=== PATIENT | male | born 1960 | race Caucasian/White ===

== ENCOUNTER 2016-12-14 13:26 | Emergency (ER) | payer OTHER ==
[~2016-12-14] VITALS: Ht 180.3 cm; Wt 106.6 kg
[~2016-12-14 13:26] MED LIST: ASPIR 8181 MG PO; FLEXERIL10 MG PO; LANTUS SOLOS100 U/ML SC; METFORMIN HCL500 MG PO; PRINIVIL 5MG5 MG PO; SIMVASTATIN40 MG PO; VICODIN5-300 PO; XARELTO20 MG PO
[2016-12-14 13:32] VITALS: BP 147/83
--- NOTE | 2016-12-14 13:35 | ED MVC/FALL/TRAUMA COMPLAINT ---
History of Present Illness General Chief Complaint: Fall Stated Complaint: BACK PAIN S/P FALL Source: patient, old records Exam Limitations: no limitations Vital Signs & Intake/Output Vital Signs & Intake/Output Vital Signs Date Time Temp Pulse Resp B/P Pulse O2 O2 Flow FiO2 Ox Delivery Rate 12/14 1332 98.6 96 18 147/83 95 Room Air Allergies Coded Allergies: atorvastatin (From Lipitor) (Severe, MUSCLE PAIN 12/14/16) Reconcile Medications Aspirin (Ecotrin) 81 MG TABLET.DR 1 TAB PO DAILY HEART HEALTH (Reported) Cyclobenzaprine HCl 5 MG TABLET 1 TAB PO TIDPRN PRN pain CYCLOBENZAPRINE HCL (Flexeril) 10 MG TABLET 1 TAB PO TID strain Avoid operating motor vehicle or heavy machinery Hydrocodone/Acetaminophen ([place] 5-325 Tablet) 5 MG-325 MG TABLET 1 TAB PO TID PRN PAIN HYDROCODONE/ACETAMINOPHEN (Hydrocodon-Acetaminophen 5-325) 5 MG-325 MG TABLET 1-2 TAB PO Q6P PRN pain Insulin Glargine, Recombinan (Lantus Solostar) 100 U/ML MARITA 53 UNITS SC BID DIABETES (Reported) Lisinopril (Prinivil) 5 MG TABLET 1 TAB PO DAILY LIVER (Reported) Metformin Hydrochloride (Metformin HCl) 500 MG TAB 1 TAB PO BID DIABETES ( Reported) Rivaroxaban (Xarelto) 20 MG TABLET 1 TAB PO DAILY BLOOD CLOT-WAS IN LEFT LEG (Reported) with food Simvastatin 40 MG TABLET 1 TAB PO QPM CHOLESTEROL (Reported) Triage Note: PT SLIPPED ON THE ICE AND FELL ON HIS BACK. C/O LOWER RIGHT SIDE BACK PAIN. Triage Nurses Notes Reviewed? yes Onset: Abrupt Duration: hour(s): (1), constant Timing: single episode today Severity: moderate Severity Numbers: 6 Injuries/Fall Location: back Method of Injury: fall Loss of Consciousness: no loss of consciousness Modifying Factors: Improves With: rest. Worsens With: movement, palpation. Associated Symptoms: denies HPI: 56-year-old male history of diabetes hypertension I cholesterol presents emergency room after he slipped on the ice outside landing on his right lower back one hour prior to arrival. He now presents complaining of moderate aching sharp pain over his right lower back that is nonradiating. It is worse with attempted range of motion change in position and palpation. He denies hitting his head there is no loss of consciousness he denies any neck or upper back pain. No arm or leg pain, there is no numbness or tingling in his legs. No urinary or bowel incontinence no abdominal pain nausea vomiting. The patient has not taken anything for his symptoms there are no other associated symptoms or modifying factors (YOUNG HSIEH) Past History Travel History Traveled to [place] past 21 day No Medical History Any Pertinent Medical History? see below for history Cardiovascular: hypertension, hyperlipidemia Endocrine: diabetes Surgical History Surgical History: shoulder repair Psychosocial History What is your primary language Iraqi Family History Hx Contributory? No (YOUNG HSIEH) Review of Systems Review of Systems Constitutional: Reports: see HPI. All Other Systems: Reviewed and Negative Comments Review of systems: See HPI, All other systems negative. Constitutional, no chills no fever, no malaise HEENT: no sore throat no congestion, no ear pain Cardiovascular: No chest pain , no palpitation Skin, no rashes, no change in skin Respiratory: No dyspnea no cough no sputum GI: No nausea no vomiting, no diarrhea, no bloating/constipation : No dysuria Muscle skeletal: No joint pain, no joint swelling, back pain, no neck pain, Neurologic: No numbness no confusion, no headache Psych: No stress Heme/endocrine: No bruising no bleeding Immunology: No lymphadenopathy (YOUNG HSIEH) Physical Exam Physical Exam General Appearance: well developed/nourished, alert, awake Comments: Well-developed well-nourished person in no acute distress HEENT: Normal EENT exam; PERRL, EOMI, HEAD is atraumatic. moist mucous membranes. Neck: Supple, no midline or paracervical tenderness, normal range of motion without pain or tenderness Back: There is right sided paralumbar muscle tenderness. Patient no ecchymosis or signs of trauma no midline tenderness pain is reproducible and worse with range of motion no CVA tenderness. There is no upper back tenderness Cardiovascular: Regular rate and rhythms no murmurs rubs Respiratory: Chest nontender.There were no bony deformities, no asymmetry. No respiratory distress. Patient speaking in full complete sentences. Breath sounds clear to auscultation bilaterally: NO W/R/R Abdomen: Soft, nontender nondistended, no appreciable organomegaly. Normal bowel sounds. No rebound/guarding, No appreciable enlargement of the abdominal aorta, No ascites. Extremity: No edema, negative straight leg raise bilaterally full range of motion of extremities, 5 out of 5 strength noted to bilateral upper and lower extremities Neuro: Alert oriented x3, motor sensory normal, There were no obvious focal neurologic abnormalities. Skin: No appreciable rash on exposed skin, skin is warm and dry. Psych: Mood and affect is normal, memory and judgment is normal. Core Measures ACS in differential dx? No Severe Sepsis Present: No Septic Shock Present: No (YOUNG HSIEH) Progress Differential Diagnosis: C/T/L spine injury, ext injury, pelvis injury, spinal cord injury, fx, sprain Plan of Care: Orders Procedure Date/time Status XRY-LUMBOSACRAL SPINE AP & LAT 12/14 1346 Active Current Medications Sig/Santos Start time Last Medication Dose Stop Time Status Admin Cyclobenzaprine HCl 10 MG ONCE ONE 12/14 1400 AC (Flexeril 10MG Tab) 12/14 1401 Morphine Sulfate 4 MG ONCE ONE 12/14 1400 AC (Morphine) 12/14 1401 X-rays ordered patient back if morphine 4 mg IM. She'll 10 mg by mouth 12/14/2016 2:51:59 PM discussed with patient his x-ray reports he reports significant improvement in pain medication ambulatory here in the ER I discussed with him at length his x-ray findings need for supportive care. Patient clinically looks well. Patient has no evidence of radiculopathy. No urinary bowel dysfunction. No numbness in the genital area. Strength intact. Gross sensation intact. Patient resting comfortably and in no apparent distress. Pain is worse with range of motion. Pain is reproducible IN back with no bruising or ecchymosis noted. . Patient is to follow-up with primary care doctor. May need MRI of the lower back at some point time. No concerns for cauda equina at this point time. I considered this diagnosis but patient does not have any symptoms consistent with cauda equina. Patient has no secondary causes of back pain. No cardiac, pulmonary, or abdominal complaints. No abdominal pain on exam. Cardiac pulmonary exam within normal limits. No rashes, afebrile, denies recent weight loss, dizziness, lightheadedness (YOUNG HSIEH) Diagnostic Imaging: Viewed by Me: Radiology Read. Discussed w/RAD: Radiology Read. Radiology Impression: PATIENT: TIEN LEWIS PRESENT AGE: 56 PATIENT ACCOUNT NO: [id number] : 56 LOCATION: [facility] ORDERING PHYSICIAN: YOUNG JOHN SERVICE DATE: 12/14/16 EXAM TYPE: RAD - XRY-LUMBOSACRAL SPINE AP & LAT EXAMINATION: XR LUMBOSACRAL SPINE CLINICAL INFORMATION: Right lower back pain following fall. COMPARISON: CTA chest, abdomen and pelvis 11/06/2014. TECHNIQUE: AP and lateral views of the lumbosacral spine as well as lateral view of the lumbosacral junction were obtained. FINDINGS: There are 5 nonrib-bearing lumbar vertebral bodies. There are mild multilevel degenerative changes of the lumbar spine, most significant at L4-L5. No acute lumbar vertebral compression deformities are identified. There is grade 1 retrolisthesis of L1 on L2. Age-indeterminate anterior wedging of the T11 vertebral body. IMPRESSION: Mild multilevel degenerative changes of the lumbar spine, most significant at L4-L5. Otherwise, no acute fracture of the lumbar spine. Redemonstrated is grade 1 retrolisthesis of L1 on L2. Lumbar spine alignment otherwise appears grossly maintained. Age-indeterminate anterior wedging of the T11 vertebral body. Correlate with physical exam and point tenderness within this region. DICTATED BY: VU LITTLE MD DATE/TIME DICTATED:12/14/161414 CORE DRILLER:JOSE ANGEL DATE/TIME TRANSCRIBED:1414 CONFIDENTIAL, DO NOT COPY WITHOUT APPROPRIATE AUTHORIZATION. < Electronically signed in Other Vendor System> SIGNED BY: VU LITTLE MD 12/14/16 1427 (ALTA JOHN,YOUNG) Departure Departure Time of Disposition: 1435 Disposition: HOME OR SELF CARE Condition: Stable Clinical Impression Primary Impression: Low back strain Secondary Impressions: Fall Referrals: SELAM THURSTON MD (PCP/Family) Additional Instructions: Ibuprofen 800 mg every 8 hours, [place] and Flexeril as directed. Use caution as these medications will make you drowsy no driving or drinking alcohol or operating machinery while taking. Rest, interchange ice and heat. Follow-up with your primary care physician, return anytime sooner with any concerns Departure Forms: Customer Survey General Discharge Information Prescriptions: Current Visit Scripts Cyclobenzaprine HCl 1 TAB PO TIDPRN PRN pain #15 TAB Hydrocodone/Acetaminophen ([place] 5-325 Tablet) 1 TAB PO TID PRN PAIN #15 TAB (YOUNG HSIEH) PA/HAND PROFILER Co-Sign Statement Statement: ED Attending supervision documentation- [] I saw and evaluated the patient. I have also reviewed all the pertinent lab results and diagnostic results. I agree with the findings and the plan of care as documented in the PA's/HAND PROFILER's documentation. [X] I have reviewed the ED Record and agree with the PA's/HAND PROFILER's documentation. [] Additions or exceptions (if any) to the PAs/HAND PROFILER's note and plan are summarized below: [] (VALE PAGE DO
--- NOTE | 2016-12-14 14:27 | RADIOLOGY REPORT ---
EXAMINATION: XR LUMBOSACRAL SPINE CLINICAL INFORMATION: Right lower back pain following fall. COMPARISON: CTA chest, abdomen and pelvis 11/06/2014. TECHNIQUE: AP and lateral views of the lumbosacral spine as well as lateral view of the lumbosacral junction were obtained. FINDINGS: There are 5 nonrib-bearing lumbar vertebral bodies. There are mild multilevel degenerative changes of the lumbar spine, most significant at L4-L5. No acute lumbar vertebral compression deformities are identified. There is grade 1 retrolisthesis of L1 on L2. Age-indeterminate anterior wedging of the T11 vertebral body. IMPRESSION: Mild multilevel degenerative changes of the lumbar spine, most significant at L4-L5. Otherwise, no acute fracture of the lumbar spine. Redemonstrated is grade 1 retrolisthesis of L1 on L2. Lumbar spine alignment otherwise appears grossly maintained. Age-indeterminate anterior wedging of the T11 vertebral body. Correlate with physical exam and point tenderness within this region.
[2016-12-14] MEDS ORDERED: CYCLOBENZAPRINE5 M2 PO (14:37)
[2016-12-14] MEDS ORDERED: NORCO 5-325 TA1 EACH PO (14:37)
== END 2016-12-14 14:49 ==
LOC: ERH 13:26
DX: S39.012A Strain of muscle, fascia and tendon of lower back, initial encounter (principal); W00.0XXA Fall on same level due to ice and snow, initial encounter
CPT/HCPCS: 72100; 96372